=== PATIENT | male | born 1985 | race Caucasian/White ===

== ENCOUNTER → 2025-01-26 | Emergency (ER) | payer MEDICAID ==
[~2025-01-26] VITALS: Ht 185.4 cm; Wt 93.0 kg
[~2025-01-26] MED LIST: ACETAMINOPHEN 325 MG TABLET ONE; LIDOCAINE 1%-EPI 1:100,000 20 ML VIAL ONE
[2025-01-26] MEDS: ACETAMINOPHEN 325 MG TABLET PO ONE (20:56)
[2025-01-26] MEDS: BACI/NEOM/POLY B OINT PKT 1 UDPKT PACKET TP ONE (21:30)
[2025-01-26] MEDS: LIDOCAINE 1%-EPI 1:100,000 20 ML VIAL TP ONE (21:37)
[2025-01-26 22:51] LABS: PLATELET COUNT (AUTO) 316 K/uL (150-450); RED BLOOD CELL COUNT(AUTO) 4.48 MIL/uL (4.5-6.0); RED CELL DISTRIBUTION WIDTH 14.9 % (11.5-15.0); WHITE BLOOD COUNT (AUTO) 15.2 K/uL (4.3-11.0)
[2025-01-26 22:59] LABS: CALCIUM, SERUM 8.5 mg/dL (8.5-10.1); CREATININE 1.1 mg/dL (0.6-1.3); SODIUM SERUM 139.0 mmol/L (136-145); UREA NITROGEN, BLOOD 24.0 mg/dL (7-18)
[2025-01-26 23:05] LABS: INR 1.04 (0.91-1.10)
[2025-01-26 23:24] VITALS: BP 139/86; TEMP 98.1; O2SAT 98
== END | disposition left against medical advice (07) ==
LOC: ER 20:38
DX: S01.81XA Laceration without foreign body of other part of head, initial encounter (principal); M25.562 Pain in left knee; M54.2 Cervicalgia; Z60.2 Problems related to living alone; V23.49XA Other motorcycle driver injured in collision with car, pick-up truck or van in traffic accident, initial encounter; Y93.55 Activity, bike riding; Y92.488 Other paved roadways as the place of occurrence of the external cause; Y99.8 Other external cause status
CPT/HCPCS: 12015; 36415; 70450; 72125; 73564; 80048; 85025; 85730; 99284; J3490